=== PATIENT | male | born 1950 | race Caucasian/White ===

== ENCOUNTER 2019-10-23 19:04 | Inpatient (IN) ==
--- NOTE | 2019-10-23 19:25 | ERNOTE ---
Medical Problem HPI - Narrative Date of Service: 10/23/19 - General Chief Complaint: General Assessment Time Seen by Provider: 10/23/19 19:20 Source: patient, RN/MD, EMS Exam Limitations: clinical condition - Immun/Allergies/Home Medications Immunizations: IMMUNIZATION HX Immunizations Up to Date Yes History of Influenza Vaccine No Hx Pneumococcal Vaccination No Allergies/Adverse Reactions: Allergies morphine Allergy (Severe, Verified 10/23/19 19:16) Hives and severe nausea Iodinated Contrast Media [Iodinated Contrast- Oral and IV Dye] Allergy (Mild, Verified 10/23/19 19:16) Hives Home Medications: HOME MEDICATIONS Ezetimibe [Zetia] 10 mg PO HS 01/18/14 [Last Taken 09/19/16] metFORMIN HCL [Glucophage] 1,000 mg PO BIDWM 09/20/16 [Last Taken 09/20/16] metFORMIN HCL [Glucophage] 500 mg PO DAILY 09/20/16 [Last Taken 09/19/16] allopurinol 300 mg tablet 300 mg PO DAILY #30 tab 12/20/17 [Last Taken Unknown] glipizide 10 mg tablet 10 mg PO BID #60 tab 12/20/17 [Last Taken Unknown] sitagliptin 100 mg tablet 100 mg PO DAILY #30 tab 12/20/17 [Last Taken Unknown] gabapentin 600 mg tablet 600 mg PO TID 01/24/18 [Last Taken Unknown] meloxicam 7.5 mg tablet 7.5 mg PO BID tab 01/24/18 [Last Taken Unknown] Nystatin 30 gm TOPICAL BID #1 cream..g. 03/16/19 [Last Taken Unknown] atorvastatin 80 mg tablet 80 mg PO HS tab 10/22/19 [Last Taken Unknown] insulin degludec 100 unit/mL (3 mL) subcutaneous pen 30 unit SUBCUT HS ml 10/22/19 [Last Taken Unknown] levothyroxine 50 mcg tablet 50 mcg PO DAILY tab 10/22/19 [Last Taken Unknown] semaglutide 2.5 mg SUBCUT QWEEK ml 10/22/19 [Last Taken Unknown] - History of Present History Narrative: The patient is a 69-year-old male who presents via [facility] after report from family of fall and confusion. EMS reports that family states patient went into the bathroom after dinner sometime to use the restroom and was later found on the floor. Patient is a poor historian due to altered mental status but states he has anterior chest pain when questioned regarding pain and also has active coughing. The patient does not localize pain and is unable to describe or rate pain level when questioned. The past medical history includes: Diabetes, TUNDE and osteoarthritis. The social history is positive for current tobacco use. The patient has had no known exposure to ill contacts. Nursing staff was able to make contact via telephone with daughter who originally called EMS. Daughter states that her mother informed her this evening around 1700 that her father had fallen around 8 am. Patient then laid on the floor until the spouse made contact with the daughter at 1700 who then contacted EMS for transport. Unknown the event of fall or why patient laid on the floor for an extended duration. Daughter states that patient did develop cough yesterday and then began to become ill since onset. Review of Systems - Narrative Narrative: Difficult to obtain ROS due to patient being poor historian due to altered mental status and family only able to offer limited information. - Review of Systems Constitutional: Present: recent illness, weakness, malaise Respiratory: Present: cough Cardiology: Present: chest pain Neurological: Present: weakness Medical History (Last Reviewed 10/23/19 @ 19:30 by YAN Armstrong) Shoulder pain, right (Chronic) Morbid obesity (Chronic) BMI 50.0-59.9, adult (Acute) Shoulder impingement (Acute) Onset Date: 10/2011 right Nicotine dependence (Chronic) Onset Date: 03/2014 Low back pain (Chronic) Lumbar disc herniation (Acute) Diabetes mellitus, type II (Chronic) Onset Date: 10/2012 Degenerative arthritis of hip (Acute) Onset Date: 10/2006 right, Dr. Lopez Cough Onset Date: 02/2013 Osteoarthritis Prinzmetal angina Per Dr. Hernández transforaminal block Onset Date: 05/31/10 Luis Manuel Sanchez 06/28/2010 L2-3 Noe Hernandez 05/31/2010 L2-3 TUNDE (obstructive sleep apnea) Sleep disturbance due to TUNDE Surgical History: Surgical History (Last Reviewed 10/23/19 @ 19:30 by YAN Armstrong) H/O cardiac catheterization Onset Date: 2003 1999 [facility], 2003 [facility] History of arthroscopic surgery of shoulder Onset Date: 12/09/14 Dr. Montemayor,Right, w/debridement partial tear biceps tendon & labrum tear History of colonoscopy Onset Date: 01/2011 History of esophagogastroduodenoscopy (EGD) Onset Date: 01/2011 History of hip replacement, total Onset Date: 08/2006 Left 2017 [facility] Right 2008 [facility] History of knee replacement procedure of right knee Onset Date: 10/2006 S/P gastroplasty Onset Date: 02/1993 Dr. Idris Morales, [facility] vertical banded gastroplasty 11mm, 5mm Family History: Family History (Last Reviewed 10/23/19 @ 19:30 by YAN Armstrong) Brother Brain aneurysm Father No problems noted. Mother Hypertension Diabetes Sister Alive and well Sister Obesity x2 Social History: (Last Reviewed 10/23/19 @ 19:30 by YAN Armstrong) Social History: Marital status: household members: spouse, children current occupational status: disabled, unemployed Highest education level completed: GED or equivalent Service: Yes branch: [employer] Tobacco: Smoking Status: Current every day smoker tobacco type: cigarettes Smoking cigarettes per day: 40.0 Smoking packs per day: 2 Years smoked: 49 Smoking pack-years: 98.00 Alcohol: alcohol intake: current alcohol intake frequency: holiday/special occasion Substance Use: substance use type: does not use Dietary Habits: caffeine: Yes caffeine comment: daily Exercise: frequency: does not exercise Physical Exam - Physical Exam General Appearance: Present: wd/wn, alert, lethargic Head Exam: Present: normal inspection, no evidence of injury Eye Exam: Normal inspection: bilateral, PERRL: bilateral, EOMI: bilateral Ears, Nose, Throat: Present: dry mucous membranes Neck: Present: normal inspection, nontender, full range of motion Respiratory: Present: no respiratory distress, chest nontender, lungs clear, accessory muscle use - mild Cardiovascular/Chest: Present: regular rate, rhythm, no murmur Gastrointestinal/Abdominal: Present: normal bowel sounds, nontender, nondistended, soft, no organomegaly Extremity Exam: Present: normal range of motion - to all 4 extremities without guarding or localized pain., extremity edema - 1+ pitting to bilateral lower extremities. 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 Absent: motor weakness Skin Exam: Present: normal color, warm/dry, other - dried feces to lower legs and feet Progress - Date and Time Seen: Date and Time: 10/23/19 20:05 Patient returned from imaging and remains lethargic. Patient orientation has somewhat improved, patient is oriented to self, birthdate and location. Patient when questioned if he recalls falling states yes but then is unable to elaborate on what caused him to fall or how long he was on the ground. Patient remains unsure of what brought him to the ER this evening. 10/23/19 20:18 Due to elevated CK as well as dry mucous membranes and altered mental status will initiate IV hydration via fluid bolus. 10/23/19 21:[address] Atkins for admission, will insert and leave in [place] for strict I&O measurement for hydration status and kidney function. After joint discussion Dr. Atkins says to just finish current bolus and will reassess patient when he presents for admission. Reviewed results of imaging as well as lab with Dr. Atkins prior to admission. Agrees that slight elevation to WBC of 14 may be associated with stress of lying on the floor but remains awaiting results of UA testing for source of infection. 10/23/19 21:29 Patient will be swab for COVID through [facility] due to greater than 62 years of age with respiratory symptoms and chronic medical conditions and due to his admission. - Results and Orders Patient's Lab Results:: I have reviewed the patient's lab results. Results and Orders: Laboratory Tests 10/23/19 10/23/19 10/23/19 19:30 19:30 19:30 WBC 14.0 H Hgb 15.7 Hct 48.5 Plt Count 175 Neutrophils % 90.1 H Lymphocytes % 4.6 L INR (Anticoag Therapy) 1.08 PTT (Dixie) 30.3 Sodium 140 Potassium 4.4 Anion Gap 14.1 H BUN 17 Creatinine 1.28 Random Glucose 164 H Lactic Acid, Venous Calcium 9.1 Total Bilirubin 2.1 H Creatine Kinase 1914 H Troponin I 0.023 10/23/19 19:30 WBC Hgb Hct Plt Count Neutrophils % Lymphocytes % INR (Anticoag Therapy) PTT (Karen) Sodium Potassium Anion Gap BUN Creatinine Random Glucose Lactic Acid, Venous 2.2 H* Calcium Total Bilirubin Creatine Kinase Troponin I - Vital Signs Patient's Vital Signs:: I have reviewed the patient's vital signs. Vital Signs: Vital Signs 10/23/19 19:06 Temperature 37.7 C Pulse Rate 87 Respiratory Rate 23 H O2 Sat by Pulse Oximetry 99 Selected Entries 10/23/19 19:06 10/23/19 21:08 Blood Pressure 114/69 144/63 - EKG EKG #1 EKG: NSR, nonspecific ST T wave changes EKG read: Reviewed by me - X-Ray X-Ray #1 X-Ray: chest Interpretation: Reviewed by me X-ray Comments: No acute cardiopulmonary disease or infiltrate noted. Reviewed with . IMPRESSION: 1. NO ACUTE CARDIOPULMONARY PROCESS. Electronically signed by Wayne Harden M.D.. - CT/Ultrasound CT/Ultrasound Narrative: Real radiology preliminary report CT head without contrast: No acute disease in the brain. Paranasal sinus disease is noted. - Progress/Reassessment Chief Complaint: General Assessment Departure Clinical Impression: Dehydration Rhabdomyolysis Qualifiers: Rhabdomyolysis type: traumatic Encounter type: initial encounter Qualified Code(s): T79.6XXA - Traumatic ischemia of muscle, initial encounter Altered mental status Qualifiers: Altered mental status type: transient alteration of awareness Qualified Code(s): R40.4 - Transient alteration of awareness - Departure Disposition: Still a patient Condition: Stable
[2019-10-23 19:38] LABS: Hematocrit 48.5 % (42.0-52.0); Hemoglobin 15.7 gm/dL (13.5-18.0); Mean Corpuscular Hemoglobin 31.4 pg (27-31); Mean Corpuscular Hgb Conc 32.4 g/dl (32-36); Mean Platelet Volume 9.5 fl (8-11.3); Neutrophil # 12.7 K/mm3 (1.3-6.0); Neutrophil % 90.1 % (42-75.0); Platelet Count 175 K/mm3 (150-450); Red Cell Distribution Width 13.8 % (11.5-14.0)
[2019-10-23 19:59] LABS: Prothrombin Time (Patient) 10.7 Seconds (9.1-10.7)
[2019-10-23 20:00] LABS: INR 1.08 INR (0.92-1.08); Partial Thrombolplastin Time 30.3 Seconds (24-32)
[2019-10-23 20:04] LABS: Troponin I 0.023 ng/mL (0.00-0.10)
[2019-10-23 20:09] LABS: Albumin * 3.5 gm/dl (3.4-5.0); Anion Gap 14.1 mmol/L (6.8-13.8); BUN/Creatinine Ratio 13.3 (9.0-21.6); Bilirubin, Total 2.1 mg/dL (0.0-1.1); Ca. Corrected For Albumin 9.2 mg/dL (8.4-10.2); Calcium * 9.1 mg/dL (7.9-10.9); Carbon Dioxide 28.3 mmol/L (24-32.6); Potassium 4.4 mmol/L (3.4-4.6); Total Protein 6.8 gm/dL (6.2-8.2)
[2019-10-23] MEDS ORDERED: NORMAL SALINE 1,000 ML IV PRN (20:11)
[2019-10-23 21:45] LABS: Urine Bilirubin Negative (NEGATIVE); Urine Blood Negative /ul (NEGATIVE); Urine Ketone Negative (NEGATIVE); Urine Nitrite Negative (NEGATIVE); Urine Protein 15 mg/dL (NEGATIVE); Urine Specific Gravity 1.015 SP.GR. (1.005-1.030); Urine Urobilinogen Normal (NORMAL)
[2019-10-23] MEDS: NORMAL SALINE 1,000 ML IV PRN (21:45)
[2019-10-23 21:53] LABS: Urine Appearance Clear (CLEAR); Urine Bacteria None Seen; Urine Color Yellow; Urine RBC 0-5 /hpf (0-5); Urine WBC 0-5 /hpf (0-5)
[2019-10-24] MEDS: NORMAL SALINE 1,000 ML IV PRN ×3 (04:39→18:42)
[2019-10-24 12:39] LABS: Hemoglobin 14.2 gm/dL (13.5-18.0); Mean Cell Volume 96.4 fl (78-100); Mean Corpuscular Hemoglobin 31.8 pg (27-31); Neutrophil # 8.6 K/mm3 (1.3-6.0); Neutrophil % 82.4 % (42-75.0); Platelet Count 168 K/mm3 (150-450); Red Blood Count 4.46 M/mm3 (4.7-6.0); Red Cell Distribution Width 13.9 % (11.5-14.0); White Blood Count 10.5 K/mm3 (4.0-10.5)
[2019-10-24 13:03] LABS: Anion Gap 13.9 mmol/L (6.8-13.8); BUN/Creatinine Ratio 13.9 (9.0-21.6); Ca. Corrected For Albumin 8.8 mg/dL (8.4-10.2); Calcium * 8.3 mg/dL (7.9-10.9); Carbon Dioxide 24.1 mmol/L (24-32.6); Total Protein 6.6 gm/dL (6.2-8.2)
[2019-10-24] MEDS: glipiZIDE 10 MG TABLET PO SCH (16:45)
--- NOTE | 2019-10-24 19:29 | HP ---
Chief Complaint - Chief Complaint Date of Service: 10/24/19 Time of Service: 02:30 Chief Complaint: Weakness, found down History of Present Illness: Jose L reports falling this morning and being significantly weak. Weakness was general and he did not have focal weakness. He was unable to get off the ground and laid on the ground all day until EMS was called in the afternoon to help. He reports not feeling himself but denies chest pain or shortness of breath. He does not know why he fell other than diffuse weakness. No nausea or vomiting. Medical History (Last Reviewed 10/24/19 @ 00:14 by Alysha Das, RN) Shoulder pain, right (Chronic) Morbid obesity (Chronic) BMI 50.0-59.9, adult (Acute) Shoulder impingement (Acute) Onset Date: 10/2011 right Nicotine dependence (Chronic) Onset Date: 03/2014 Low back pain (Chronic) Lumbar disc herniation (Acute) Diabetes mellitus, type II (Chronic) Onset Date: 10/2012 Degenerative arthritis of hip (Acute) Onset Date: 10/2006 right, Dr. Lopez Cough Onset Date: 02/2013 Osteoarthritis Prinzmetal angina Per Dr. Hernández transforaminal block Onset Date: 05/31/10 Luis Manuel Sanchez 06/28/2010 L2-3 Noe Hernandez 05/31/2010 L2-3 TUNDE (obstructive sleep apnea) Sleep disturbance due to TUNDE Surgical History: Surgical History (Last Reviewed 10/24/19 @ 00:14 by Alysha Das, RN) H/O cardiac catheterization Onset Date: 2003 1999 [facility], 2004 [facility] History of arthroscopic surgery of shoulder Onset Date: 12/09/14 Dr. Montemayor,Right, w/debridement partial tear biceps tendon & labrum tear History of colonoscopy Onset Date: 01/2011 History of esophagogastroduodenoscopy (EGD) Onset Date: 01/2011 History of hip replacement, total Onset Date: 08/2006 Left 2017 [facility] Right 2007 [facility] History of knee replacement procedure of right knee Onset Date: 10/2006 S/P gastroplasty Onset Date: 02/1993 Dr. Idris Morales, [facility] vertical banded gastroplasty 11mm, 5mm Family History: Family History (Last Reviewed 10/24/19 @ 00:14 by Alysha Das, RN) Brother Brain aneurysm Father No problems noted. Mother Hypertension Diabetes Sister Alive and well Sister Obesity x2 Social History: (Last Reviewed 10/24/19 @ 00:14 by Alysha Das RN) Social History: Marital status: household members: spouse, children current occupational status: disabled, unemployed Highest education level completed: GED or equivalent Service: Yes branch: [employer] Tobacco: Smoking Status: Current every day smoker tobacco type: cigarettes Smoking cigarettes per day: 40.0 Smoking packs per day: 2 Years smoked: 49 Smoking pack-years: 98.00 Alcohol: alcohol intake: current alcohol intake frequency: holiday/special occasion Substance Use: substance use type: does not use Dietary Habits: caffeine: Yes caffeine comment: daily Exercise: frequency: does not exercise Review Of Systems (GEN) - Review of Systems Generalized/Overall Review: Present: Weakness. Absent: Chills, Fever EENTM: Present: No Symptoms Reported Respiratory: Present: Cough. Absent: Shortness of Breath Cardiac: Absent: Chest Pain, Edema Abdominal: Absent: Nausea, Vomiting Genitourinary: Absent: Burning, Urgency Musculoskeletal: Absent: Joint Pain, Back Pain Neurological: Absent: Headache, Anxiety Skin: Absent: Dryness, Lesions Endocrine: Absent: Intolerance to Cold, Intolerance to Heat Immunizations: IMMUNIZATION HX Immunizations Up to Date Yes History of Influenza Vaccine No Hx Pneumococcal Vaccination No Allergies/Adverse Reactions: Allergies Allergy/AdvReac Type Severity Reaction Status Date / Time morphine Allergy Severe Hives Verified 10/23/19 19:16 Iodinated Contrast Media Allergy Mild Hives Verified 10/23/19 19:16 [Iodinated Contrast- Oral and IV Dye] Home Medications: HOME MEDICATIONS Ezetimibe [Zetia] 10 mg PO HS 01/18/14 [Last Taken 09/19/16] metFORMIN HCL [Glucophage] 1,000 mg PO BID 09/20/16 [Last Taken 09/20/16] allopurinol 300 mg tablet 300 mg PO DAILY #30 tab 12/20/17 [Last Taken Unknown] glipizide 10 mg tablet 10 mg PO BID #60 tab 12/20/17 [Last Taken Unknown] gabapentin 600 mg tablet 600 mg PO TID 01/24/18 [Last Taken Unknown] meloxicam 7.5 mg tablet 7.5 mg PO BID tab 01/24/18 [Last Taken Unknown] atorvastatin 80 mg tablet 80 mg PO HS tab 10/22/19 [Last Taken Unknown] Hydrocodone-Acetamin 5-325 mg 1 tab PO Q6H PRN 10/24/19 [Last Taken Unknown] Insulin Degludec [Tresiba Flextouch U-100] 30 unit SQ HS 10/24/19 [Last Taken Unknown] Semaglutide [Ozempic] 0.25 mg SQ WE 10/24/19 [Last Taken Unknown] Exam - Exam Vital Signs: Vital Signs - Last Taken Temp 36.9 C 10/24/19 17:34 Pulse 89 10/24/19 17:34 Resp 20 10/24/19 17:34 BP 132/84 10/24/19 17:34 Pulse Ox 96 10/24/19 17:34 Constitutional: Present: Alert, Oriented x3, Cooperative ENT Exam: Present: hearing grossly normal Eye Exam: bilateral eye: normal inspection Respiratory: Present: lungs clear, normal breath sounds, no respiratory distress Cardiovascular/Chest: Present: regular rate, rhythm, no murmur Peripheral Pulses: radial (R): 2+, radial (L): 2+ Abdomen: Present: Normal bowel sounds, soft, nontender, nondistended Extremity: Present: normal inspection Skin Exam: Present: normal color, warm/dry, no cyanosis Lymphatic: Present: no adenopathy Neurologic: Present: motor weakness - 3/5 diffuse Appearance: Present: appropriate appearance, appropriate insight Eye contact: Present: cooperative, good eye contact, normal speech Diagnostic Studies: Abnormal Lab Results 10/23/19 10/23/19 10/23/19 Range/Units 19:30 19:30 19:30 WBC 14.0 H (4.0-10.5) K/mm3 RBC (4.7-6.0) M/mm3 MCH 31.4 H (27-31) pg Immature Gran % (Auto) 0.60 H (0.001-0.429) % Immature Gran # (Auto) 0.08 H (0.000-0.0310) K/mm3 Neutrophils % 90.1 H (42-75.0) % Lymphocytes % 4.6 L (20-51) % Neutrophils # 12.7 H (1.3-6.0) K/mm3 Lymphocytes # 0.64 L (1.5-3.5) k/mm3 pO2 (83.0-108.0) mmHg Total CO2 (19.0-24.0) mmol/L ABG O2 Sat (Measured) (94.0-98.0) % Anion Gap 14.1 H (6.8-13.8) mmol/L Random Glucose 164 H (70-110) mg/dL Lactic Acid, Venous 2.2 H* (0.4-2.0) mmol/L Total Bilirubin 2.1 H (0.0-1.1) mg/dL AST (0-48) U/L Creatine Kinase 1914 H (0-259) U/L Albumin (3.4-5.0) gm/dl Urine pH (5.0-7.0) pH Urine Protein (NEGATIVE) mg/dL 10/23/19 10/23/19 10/24/19 Range/Units 20:44 21:37 12:33 WBC (4.0-10.5) K/mm3 RBC 4.46 L (4.7-6.0) M/mm3 MCH 31.8 H (27-31) pg Immature Gran % (Auto) (0.001-0.429) % Immature Gran # (Auto) 0.04 H (0.000-0.0310) K/mm3 Neutrophils % 82.4 H (42-75.0) % Lymphocytes % 9.7 L (20-51) % Neutrophils # 8.6 H (1.3-6.0) K/mm3 Lymphocytes # 1.01 L (1.5-3.5) k/mm3 pO2 62.0 L (83.0-108.0) mmHg Total CO2 25.6 H (19.0-24.0) mmol/L ABG O2 Sat (Measured) 92.8 L (94.0-98.0) % Anion Gap (6.8-13.8) mmol/L Random Glucose (70-110) mg/dL Lactic Acid, Venous (0.4-2.0) mmol/L Total Bilirubin (0.0-1.1) mg/dL AST (0-48) U/L Creatine Kinase (0-259) U/L Albumin (3.4-5.0) gm/dl Urine pH 8.0 H (5.0-7.0) pH Urine Protein 15 H (NEGATIVE) mg/dL 10/24/19 Range/Units 12:33 WBC (4.0-10.5) K/mm3 RBC (4.7-6.0) M/mm3 MCH (27-31) pg Immature Gran % (Auto) (0.001-0.429) % Immature Gran # (Auto) (0.000-0.0310) K/mm3 Neutrophils % (42-75.0) % Lymphocytes % (20-51) % Neutrophils # (1.3-6.0) K/mm3 Lymphocytes # (1.5-3.5) k/mm3 pO2 (83.0-108.0) mmHg Total CO2 (19.0-24.0) mmol/L ABG O2 Sat (Measured) (94.0-98.0) % Anion Gap 13.9 H (6.8-13.8) mmol/L Random Glucose 152 H (70-110) mg/dL Lactic Acid, Venous (0.4-2.0) mmol/L Total Bilirubin 2.0 H (0.0-1.1) mg/dL AST 89 H (0-48) U/L Creatine Kinase 3510 H (0-259) U/L Albumin 3.0 L (3.4-5.0) gm/dl Urine pH (5.0-7.0) pH Urine Protein (NEGATIVE) mg/dL Laboratory Results WBC 10.5 K/mm3 (4.0-10.5) D 10/24/19 12:33 RBC 4.46 M/mm3 (4.7-6.0) L 10/24/19 12:33 Hgb 14.2 gm/dL (13.5-18.0) 10/24/19 12:33 Hct 43.0 % (42.0-52.0) 10/24/19 12:33 MCV 96.4 fl (78-100) 10/24/19 12:33 MCH 31.8 pg (27-31) H 10/24/19 12:33 MCHC 33.0 g/dl (32-36) 10/24/19 12:33 RDW 13.9 % (11.5-14.0) 10/24/19 12:33 Plt Count 168 K/mm3 (150-450) 10/24/19 12:33 MPV 9.0 fl (8-11.3) 10/24/19 12:33 Immature Gran % (Auto) 0.40 % (0.001-0.429) 10/24/19 12:33 Immature Gran # (Auto) 0.04 K/mm3 (0.000-0.0310) H 10/24/19 12:33 Neutrophils % 82.4 % (42-75.0) H 10/24/19 12:33 Lymphocytes % 9.7 % (20-51) L 10/24/19 12:33 Monocytes % 7.4 % (0.0-9) 10/24/19 12:33 Eosinophils % 0.0 % (0.0-3.0) 10/24/19 12:33 Basophils % 0.1 % (0.0-1.0) 10/24/19 12:33 Nucleated RBC % 0.0 k/mm3 (0-1) 10/24/19 12:33 Neutrophils # 8.6 K/mm3 (1.3-6.0) H 10/24/19 12:33 Lymphocytes # 1.01 k/mm3 (1.5-3.5) L 10/24/19 12:33 Monocytes # 0.8 k/mm3 (0.0-1.0) 10/24/19 12:33 Eosinophils # 0.0 k/mm3 (0.0-0.7) 10/24/19 12:33 Absolute Basophils 0.0 k/mm3 (0.0-0.1) 10/24/19 12:33 PT 10.7 Seconds (9.1-10.7) 10/23/19 19:30 INR (Anticoag Therapy) 1.08 INR (0.92-1.08) 10/23/19 19:30 PTT (Karen) 30.3 Seconds (24-32) 10/23/19 19:30 pCO2 36.6 mmHg (35.0-48.0) 10/23/19 20:44 pO2 62.0 mmHg (83.0-108.0) L 10/23/19 20:44 HCO3 24.5 mmol/L (21.0-28.0) 10/23/19 20:44 Total CO2 25.6 mmol/L (19.0-24.0) H 10/23/19 20:44 Base Excess 0.7 mmol/L (-2.0-3.0) 10/23/19 20:44 ABG pH 7.44 (7.35-7.45) 10/23/19 20:44 ABG O2 Sat (Measured) 92.8 % (94.0-98.0) L 10/23/19 20:44 Sodium 137 mmol/L (132-142) 10/24/19 12:33 Plasma Sodium 138 mmol/L (130-142) 10/24/19 12:33 Potassium 4.0 mmol/L (3.4-4.6) 10/24/19 12:33 Chloride 103 mmol/L (97-106) 10/24/19 12:33 Carbon Dioxide 24.1 mmol/L (24-32.6) 10/24/19 12:33 Anion Gap 13.9 mmol/L (6.8-13.8) H 10/24/19 12:33 BUN 14 mg/dL (6-23) 10/24/19 12:33 Creatinine 1.01 mg/dL (0.4-1.4) 10/24/19 12:33 Est GFR (Non-Af Amer) 78 mL/min (60-130) D 10/24/19 12:33 BUN/Creatinine Ratio 13.9 (9.0-21.6) 10/24/19 12:33 Random Glucose 152 mg/dL (70-110) H 10/24/19 12:33 Lactic Acid, Venous 1.8 mmol/L (0.4-2.0) 10/23/19 22:33 Calcium 8.3 mg/dL (7.9-10.9) 10/24/19 12:33 Calcium Adj for Albumin 8.8 mg/dL (8.4-10.2) 10/24/19 12:33 Total Bilirubin 2.0 mg/dL (0.0-1.1) H 10/24/19 12:33 AST 89 U/L (0-48) H 10/24/19 12:33 ALT 32 U/L (19-67) 10/24/19 12:33 Alkaline Phosphatase 65 U/L (50-170) 10/24/19 12:33 Creatine Kinase 3510 U/L (0-259) H 10/24/19 12:33 Troponin I 0.023 ng/mL (0.00-0.10) 10/23/19 19:30 Total Protein 6.6 gm/dL (6.2-8.2) 10/24/19 12:33 Albumin 3.0 gm/dl (3.4-5.0) L 10/24/19 12:33 Urine Color Yellow 10/23/19 21:37 Urine Appearance Clear (CLEAR) 10/23/19 21:37 Urine pH 8.0 pH (5.0-7.0) H 10/23/19 21:37 Ur Specific [place] 1.015 SP.GR. (1.005-1.030) 10/23/19 21:37 Urine Protein 15 mg/dL (NEGATIVE) H 10/23/19 21:37 Urine Glucose (UA) Negative mg/dL (NEGATIVE) 10/23/19 21:37 Urine Ketones Negative mg/dL (NEGATIVE) 10/23/19 21:37 Urine Blood Negative /ul (NEGATIVE) 10/23/19 21:37 Urine Nitrate Negative (NEGATIVE) 10/23/19 21:37 Urine Bilirubin Negative mg/dl (NEGATIVE) 10/23/19 21:37 Prot Sulfosalicylic Acd Negative mg/dL (0) 10/23/19 21:37 Urine Urobilinogen Normal EU/dl (NORMAL) 10/23/19 21:37 Ur Leukocyte Esterase Negative /ul (NEGATIVE) 10/23/19 21:37 Urine RBC 0-5 /hpf (0-5) 10/23/19 21:37 Urine WBC 0-5 /hpf (0-5) 10/23/19 21:37 Ur Epithelial Cells 0-5 /hpf (0-5) 10/23/19 21:37 Urine Bacteria None seen (NONE) 10/23/19 21:37 Urine Culture Comments Culture to follow 10/23/19 21:37 Assessment/Plan - Narrative Narrative: Jose L has rhabdomyolysis with elevated CK. No renal failure at this time but he will need IV fluids nad monitoring of CK and renal function. Will admit to inaptient status. Plan for 2-3 midnight stay to make sure no renal failure deve lops. Unclear etiology for generalized weakness. No evidence of stroke. May consider MRI of brain if not improving. - Assessment/Plan (1) Rhabdomyolysis Problem: Acute Qualifiers: Rhabdomyolysis type: traumatic Encounter type: initial encounter Qualified Code(s): T79.6XXA - Traumatic ischemia of muscle, initial encounter (2) Dehydration Problem: Acute (3) Altered mental status Problem: Acute Qualifiers: Altered mental status type: transient alteration of awareness Qualified Code(s): R40.4 - Transient alteration of awareness (4) Morbid obesity Problem: Chronic (5) BMI 50.0-59.9, adult Problem: Acute
[2019-10-24] MEDS: EZETIMIBE 10 MG TABLET PO SCH (21:50)
[2019-10-24] MEDS: ROSUVASTATIN CALCIUM 20 MG TABLET PO SCH (21:50)
[2019-10-25] MEDS: NORMAL SALINE 1,000 ML IV PRN ×2 (02:34→09:53)
[2019-10-25] MEDS: glipiZIDE 10 MG TABLET PO SCH ×2 (06:41→17:01)
[2019-10-25] MEDS: ALLOPURINOL 300 MG TABLET PO SCH (08:35)
[2019-10-25 13:29] LABS: Hematocrit 44.1 % (42.0-52.0); Hemoglobin 14.2 gm/dL (13.5-18.0); Mean Corpuscular Hemoglobin 31.6 pg (27-31); Mean Corpuscular Hgb Conc 32.2 g/dl (32-36); Mean Platelet Volume 9.7 fl (8-11.3); Neutrophil # 5.5 K/mm3 (1.3-6.0); Neutrophil % 69.6 % (42-75.0); Platelet Count 168 K/mm3 (150-450); White Blood Count 7.9 K/mm3 (4.0-10.5)
[2019-10-25 14:03] LABS: Albumin * 2.9 gm/dl (3.4-5.0); Anion Gap 11.1 mmol/L (6.8-13.8); BUN/Creatinine Ratio 13.9 (9.0-21.6); Bilirubin, Total 1.3 mg/dL (0.0-1.1); Ca. Corrected For Albumin 9.7 mg/dL (8.4-10.2); Calcium * 9.1 mg/dL (7.9-10.9); Carbon Dioxide 28.4 mmol/L (24-32.6); Potassium 4.5 mmol/L (3.4-4.6); Total Protein 6.8 gm/dL (6.2-8.2)
[2019-10-25] MEDS: ROSUVASTATIN CALCIUM 20 MG TABLET PO SCH (20:45)
[2019-10-25] MEDS: EZETIMIBE 10 MG TABLET PO SCH (20:45)
--- NOTE | 2019-10-25 22:45 | PN ---
Subjective - Date and Time Seen Date: 10/25/19 Time: 12:30 Subjective Narrative: Anand reports feeling stronger. No fever, chills, nausea, or vomiting. He reports urinating a lot with all the fluids he has been given. CK is trending down. Objective - Vitals Vitals: Last Vital Signs Temp 36.6 C 10/25/19 19:05 Pulse 62 10/25/19 19:05 Resp 17 10/25/19 19:05 BP 120/60 10/25/19 19:05 Pulse Ox 94 10/25/19 19:05 - Abnormal Lab Findings Abnormal Lab Findings: Abnormal Lab Results 10/25/19 10/25/19 Range/Units 12:59 12:59 RBC 4.50 L (4.7-6.0) M/mm3 MCH 31.6 H (27-31) pg Lymphocytes % 18.4 L (20-51) % Monocytes % 10.4 H (0.0-9) % Lymphocytes # 1.46 L (1.5-3.5) k/mm3 Random Glucose 217 H D (70-110) mg/dL Total Bilirubin 1.3 H (0.0-1.1) mg/dL AST 75 H (0-48) U/L Creatine Kinase 1572 H (0-259) U/L Albumin 2.9 L (3.4-5.0) gm/dl - Exam Constitutional: Present: Alert, Oriented x3, Cooperative ENT Exam: Present: hearing grossly normal Respiratory: Present: normal breath sounds, no respiratory distress Cardiovascular/Chest: Present: no edema Abdomen: Present: Normal bowel sounds, soft, nontender, nondistended Extremity: Present: normal inspection Skin Exam: Present: normal color, warm/dry, no cyanosis Appearance: Present: appropriate appearance, appropriate insight Cauti Physician Documentation - Urinary Catheter Management Urethral ([place]) Date of Insertion: 10/23/19 Time of Insertion: 21:41 Date of Removal: 10/24/19 Time of Removal: 21:35 Assessment/Plan Plan Narrative: CK trending down. Will stop IV fluids and repeat CK tomorrow if still trending down will plan to discharge to home. No sign of renal failure. - Problems/Diagnosis (1) Rhabdomyolysis Problem: Acute Qualifiers: Rhabdomyolysis type: non-traumatic Qualified Code(s): M62.82 - Rhabdomyolysis (2) Dehydration Problem: Acute (3) Altered mental status Problem: Acute Qualifiers: Altered mental status type: transient alteration of awareness Qualified Code(s): R40.4 - Transient alteration of awareness (4) Morbid obesity Problem: Chronic (5) BMI 50.0-59.9, adult Problem: Acute
[2019-10-26 06:36] LABS: Hematocrit 45.3 % (42.0-52.0); Hemoglobin 14.6 gm/dL (13.5-18.0); Mean Cell Volume 97.8 fl (78-100); Mean Corpuscular Hemoglobin 31.5 pg (27-31); Mean Corpuscular Hgb Conc 32.2 g/dl (32-36); Mean Platelet Volume 9.7 fl (8-11.3); Neutrophil # 5.7 K/mm3 (1.3-6.0); Platelet Count 183 K/mm3 (150-450); Red Blood Count 4.63 M/mm3 (4.7-6.0); Red Cell Distribution Width 13.9 % (11.5-14.0); White Blood Count 7.6 K/mm3 (4.0-10.5)
[2019-10-26] MEDS: glipiZIDE 10 MG TABLET PO SCH (06:49)
[2019-10-26 06:56] LABS: Anion Gap 11.6 mmol/L (6.8-13.8); BUN/Creatinine Ratio 12.7 (9.0-21.6); Ca. Corrected For Albumin 9.3 mg/dL (8.4-10.2); Calcium * 8.8 mg/dL (7.9-10.9); Carbon Dioxide 28.4 mmol/L (24-32.6); Total Protein 6.8 gm/dL (6.2-8.2)
--- NOTE | 2019-10-26 08:08 | DS ---
(1) Rhabdomyolysis Problem: Acute Qualifiers: Rhabdomyolysis type: non-traumatic Qualified Code(s): M62.82 - Rhabdomyolysis (2) Dehydration Problem: Acute (3) Altered mental status Problem: Acute Qualifiers: Altered mental status type: transient alteration of awareness Qualified Code(s): R40.4 - Transient alteration of awareness (4) Morbid obesity Problem: Chronic (5) BMI 50.0-59.9, adult Problem: Acute Date of Discharge:: 10/26/19 Hospital Course: Jose L was admitted for rhabdomyolysis after being down at home. He reports he got weak and fell at home and was unable to get up for hours. He was admitted with elevated CK but no renal impairment. He was treated with IV fluids and strength improved. CK trended down and there was no renal impairment. He will be discharged to home today as his strength has returned to his baseline and he is doing well. He was tested for COVID because of his presentation with cough, but he later reported that his cough is a chronic smoker's cough. COVID was negative. Procedures Performed: none Results and Findings: Pending Mircobiology Results 10/23/19 20:00 Blood Blood Culture - Preliminary NO GROWTH AFTER 48 HOURS 10/23/19 19:30 Blood Blood Culture - Preliminary NO GROWTH AFTER 48 HOURS Lab Pending Results 10/23/19 19:30: WBC 14.0 H, RBC 5.00, Hgb 15.7, Hct 48.5, MCV 97.0, MCH 31.4 H, MCHC 32.4, RDW 13.8, Plt Count 175, MPV 9.5, Immature Gran % (Auto) 0.60 H, Immature Gran # (Auto) 0.08 H, Neutrophils % 90.1 H, Lymphocytes % 4.6 L, Monocytes % 4.5, Eosinophils % 0.0, Basophils % 0.2, Nucleated RBC % 0.0, Neutrophils # 12.7 H, Lymphocytes # 0.64 L, Monocytes # 0.6, Eosinophils # 0.0, Absolute Basophils 0.0 10/23/19 19:30: Sodium 140, Plasma Sodium 141, Potassium 4.4, Chloride 102, Carbon Dioxide 28.3, Anion Gap 14.1 H, BUN 17, Creatinine 1.28, Est GFR (Non-Af Amer) 60, BUN/Creatinine Ratio 13.3, Random Glucose 164 H, Calcium 9.1, Calcium Adj for Albumin 9.2, Total Bilirubin 2.1 H, AST 43, ALT 23, Alkaline Phosphatase 78, Creatine Kinase 1914 H, Troponin I 0.023, Total Protein 6.8, Albumin 3.5 10/23/19 19:30: PT 10.7, INR (Anticoag Therapy) 1.08, PTT ([place]) 30.3 10/23/19 19:30: Lactic Acid, Venous 2.2 H* 10/23/19 20:44: pCO2 36.6, pO2 62.0 L, HCO3 24.5, Total CO2 25.6 H, Base Excess 0.7, ABG pH 7.44, ABG O2 Sat (Measured) 92.8 L 10/23/19 21:37: SARS-CoV-2 (PCR) Not detected 10/23/19 21:37: Urine Color Yellow, Urine Appearance Clear, Urine pH 8.0 H, Ur Specific [place] 1.015, Urine Protein 15 H, Urine Glucose (UA) Negative, Urine Ketones Negative, Urine Blood Negative, Urine Nitrate Negative, Urine Bilirubin Negative, Prot Sulfosalicylic Acd Negative, Urine Urobilinogen Normal, Ur Leukocyte Esterase Negative, Urine RBC 0-5, Urine WBC 0-5, Ur Epithelial Cells 0-5, Urine Bacteria None seen, Urine Culture Comments Culture to follow 10/23/19 22:33: Lactic Acid, Venous 1.8 10/24/19 12:33: WBC 10.5 D, RBC 4.46 L, Hgb 14.2, Hct 43.0, MCV 96.4, MCH 31.8 H, MCHC 33.0, RDW 13.9, Plt Count 168, MPV 9.0, Immature Gran % (Auto) 0.40, Immature Gran # (Auto) 0.04 H, Neutrophils % 82.4 H, Lymphocytes % 9.7 L, Monocytes % 7.4, Eosinophils % 0.0, Basophils % 0.1, Nucleated RBC % 0.0, Neutrophils # 8.6 H, Lymphocytes # 1.01 L, Monocytes # 0.8, Eosinophils # 0.0, Absolute Basophils 0.0 10/24/19 12:33: Sodium 137, Plasma Sodium 138, Potassium 4.0, Chloride 103, Carbon Dioxide 24.1, Anion Gap 13.9 H, BUN 14, Creatinine 1.01, Est GFR (Non-Af Amer) 78 D, BUN/Creatinine Ratio 13.9, Random Glucose 152 H, Calcium 8.3, Calcium Adj for Albumin 8.8, Total Bilirubin 2.0 H, AST 89 H, ALT 32, Alkaline Phosphatase 65, Creatine Kinase 3510 H, Total Protein 6.6, Albumin 3.0 L 10/25/19 12:59: WBC 7.9 D, RBC 4.50 L, Hgb 14.2, Hct 44.1, MCV 98.0, MCH 31.6 H, MCHC 32.2, RDW 14.0, Plt Count 168, MPV 9.7, Immature Gran % (Auto) 0.30, Immature Gran # (Auto) 0.02, Neutrophils % 69.6, Lymphocytes % 18.4 L, Monocytes % 10.4 H, Eosinophils % 1.0, Basophils % 0.3, Nucleated RBC % 0.0, Neutrophils # 5.5, Lymphocytes # 1.46 L, Monocytes # 0.8, Eosinophils # 0.1, Absolute Basophils 0.0 10/25/19 12:59: Sodium 139, Plasma Sodium 141, Potassium 4.5, Chloride 104, Carbon Dioxide 28.4, Anion Gap 11.1, BUN 14, Creatinine 1.01, Est GFR (Non-Af Amer) 78, BUN/Creatinine Ratio 13.9, Random Glucose 217 H D, Calcium 9.1, Calcium Adj for Albumin 9.7, Total Bilirubin 1.3 H, AST 75 H, ALT 24, Alkaline Phosphatase 70, Creatine Kinase 1572 H, Total Protein 6.8, Albumin 2.9 L 10/26/19 06:30: WBC 7.6, RBC 4.63 L, Hgb 14.6, Hct 45.3, MCV 97.8, MCH 31.5 H, MCHC 32.2, RDW 13.9, Plt Count 183, MPV 9.7, Immature Gran % (Auto) 0.40, Immature Gran # (Auto) 0.03, Neutrophils % 74.0, Lymphocytes % 15.6 L, Monocytes % 8.7, Eosinophils % 1.2, Basophils % 0.1, Nucleated RBC % 0.0, Neutrophils # 5.7, Lymphocytes # 1.19 L, Monocytes # 0.7, Eosinophils # 0.1, Absolute Basophils 0.0 10/26/19 06:30: Sodium 138, Plasma Sodium 141, Potassium 4.0, Chloride 102, Carbon Dioxide 28.4, Anion Gap 11.6, BUN 13, Creatinine 1.02, Est GFR (Non-Af Amer) 77, BUN/Creatinine Ratio 12.7, Random Glucose 258 H, Calcium 8.8, Calcium Adj for Albumin 9.3, Total Bilirubin 1.0, AST 57 H, ALT 32, Alkaline Phosphatase 81, Creatine Kinase 736 H, Total Protein 6.8, Albumin 3.0 L Discharge Location: Home Disposition: Home self-care Condition: Good Discharge Activity: Activity as tolerated Discharge Diet: Consistent carbs Referrals: Emely Jensen ARNP [Primary Care Provider] - One Week Problem Oriented Discharge Instructions to Patient/Family: Rhabdomyolysis Complete Home Medications List: Complete Home Medication List: Ezetimibe [Zetia] 10 mg PO HS 01/18/14 metFORMIN HCL [Glucophage] 1,000 mg PO BID 09/20/16 allopurinol 300 mg tablet 300 mg PO DAILY #30 tab 12/20/17 glipizide 10 mg tablet 10 mg PO BID #60 tab 12/20/17 gabapentin 600 mg tablet 600 mg PO TID 01/24/18 meloxicam 7.5 mg tablet 7.5 mg PO BID tab 01/24/18 atorvastatin 80 mg tablet 80 mg PO HS tab 10/22/19 Hydrocodone-Acetamin 5-325 mg 1 tab PO Q6H PRN 10/24/19 Insulin Degludec [Tresiba Flextouch U-100] 30 unit SQ HS 10/24/19 Semaglutide [Ozempic] 0.25 mg SQ WE 10/24/19 Forms: Patient Portal Registration
[2019-10-26] MEDS: ALLOPURINOL 300 MG TABLET PO SCH (09:10)
[2019-10-26 09:57] VITALS: BP 128/59
== END 2019-10-26 10:00 | disposition home or self-care (01) | DRG 565 ==
LOC: ER 19:04 → MS 21:26
PROVIDERS: ADMIT Family Medicine; ATTEND Family Medicine
CPT/HCPCS: 36415; 36600; 70450; 71010; 71045; 80053; 81001; 82550; 82803; 83605; 84484; 85025; 85610; 85730; 87040; 87086; 93005; 96360; 99285; U0001

== ENCOUNTER 2020-07-12 06:20 | Observation (INO) ==
[2020-07-12 06:50] LABS: Hematocrit 48.9 % (42.0-52.0); Hemoglobin 15.6 gm/dL (13.5-18.0); Mean Cell Volume 95.5 fl (78-100); Mean Corpuscular Hemoglobin 30.5 pg (27-31); Mean Corpuscular Hgb Conc 31.9 g/dl (32-36); Mean Platelet Volume 9.5 fl (8-11.3); Neutrophil # 12.3 K/mm3 (1.3-6.0); Neutrophil % 87.5 % (42-75.0); Platelet Count 204 K/mm3 (150-450); Red Blood Count 5.12 M/mm3 (4.7-6.0); Red Cell Distribution Width 13.5 % (11.5-14.0); White Blood Count 14.1 K/mm3 (4.0-10.5)
[2020-07-12] MEDS ORDERED: cefTRIAXone SODIUM 1,000 MG/100 ML BAG IV ONE (06:53)
[2020-07-12] MEDS: NORMAL SALINE 1,000 ML IV SCH ×4 (07:16→13:43)
[2020-07-12 07:20] LABS: Albumin * 3.7 gm/dl (3.4-5.0); Anion Gap 14.6 mmol/L (6.8-13.8); BUN/Creatinine Ratio 13.5 (9.0-21.6); Bilirubin, Total 1.4 mg/dL (0.0-1.1); Ca. Corrected For Albumin 9.2 mg/dL (8.4-10.2); Calcium * 9.3 mg/dL (7.9-10.9); Carbon Dioxide 24.4 mmol/L (24-32.6); Total Protein 7.8 gm/dL (6.2-8.2)
--- NOTE | 2020-07-12 07:40 | ERNOTE ---
<Bing Hayes - Last Filed: 07/12/20 07:58> Medical Problem HPI - Narrative Date of Service: 07/12/20 - General Chief Complaint: General Assessment Time Seen by Provider: 07/12/20 06:43 Source: patient Exam Limitations: no limitations - Immun/Allergies/Home Medications Immunizations: IMMUNIZATION HX Immunizations Up to Date Yes History of Influenza Vaccine No Hx Pneumococcal Vaccination No Allergies/Adverse Reactions: Allergies morphine Allergy (Severe, Verified 05/26/20 13:40) Hives and severe nausea Iodinated Contrast Media [Iodinated Contrast- Oral and IV Dye] Allergy (Mild, Verified 05/26/20 13:40) Hives Home Medications: HOME MEDICATIONS Ezetimibe [Zetia] 10 mg PO HS 01/18/14 [Last Taken 09/19/16] metFORMIN HCL [Glucophage] 1,000 mg PO BID 09/20/16 [Last Taken 09/20/16] allopurinol 300 mg tablet 300 mg PO DAILY #30 tab 12/20/17 [Last Taken Unknown] glipizide 10 mg tablet 10 mg PO BID #60 tab 12/20/17 [Last Taken Unknown] atorvastatin 80 mg tablet 80 mg PO HS tab 10/22/19 [Last Taken Unknown] Insulin Degludec [Tresiba Flextouch U-100] 30 unit SQ HS 10/24/19 [Last Taken Unknown] Semaglutide [Ozempic] 0.25 mg SQ WE 10/24/19 [Last Taken Unknown] furosemide 40 mg tablet 40 mg PO DAILY #30 tab 05/26/20 [Last Taken Unknown] Celecoxib [Celebrex] 100 mg PO BID PRN 07/12/20 [Last Taken Unknown] Levothyroxine Sodium [Synthroid] 50 mcg PO DAILY 07/12/20 [Last Taken Unknown] Montelukast Sodium [Singulair] 10 mg PO HS 07/12/20 [Last Taken Unknown] metFORMIN HCL [Metformin HCl] 500 mg PO DAILY 07/12/20 [Last Taken Unknown] - History of Present History Narrative: Patient comes in today for shortness of breath and cough. He states he started not feeling well just a few hours ago. He has history of COPD, diabetes, hypertension, hyperlipidemia. He has never had a heart attack, no stents placed. He has not been around anyone ill lately. He is not typically on oxygen, is currently requiring 2 L of oxygen. He states his mouth feels dry, he thinks he is dehydrated. No swelling in the ankles or feet that is any worse than usual. Denies chest pain. Review of Systems - Review of Systems Constitutional: Present: fever, fatigue, malaise. Absent: weakness EYE: Present: no symptoms reported Respiratory: Present: shortness of breath, cough. Absent: wheezing Cardiology: Absent: chest pain, edema Gastrointestinal/Abdominal: Absent: nausea, vomiting, diarrhea, constipation Neurological: Absent: anxiety, weakness, numbness Medical History (Last Reviewed 07/12/20 @ 07:33 by Bing Hayes MD) Shoulder pain, right (Chronic) Morbid obesity (Chronic) BMI 50.0-59.9, adult (Acute) Shoulder impingement (Acute) Onset Date: 10/2011 right Nicotine dependence (Chronic) Onset Date: 03/2014 Low back pain (Chronic) Lumbar disc herniation (Acute) Diabetes mellitus, type II (Chronic) Onset Date: 10/2012 Degenerative arthritis of hip (Acute) Onset Date: 10/2006 right, Dr. Lopez Cough Onset Date: 02/2013 Osteoarthritis Prinzmetal angina Per Dr. Hernández transforaminal block Onset Date: 05/31/10 Luis Manuel Sanchez 06/28/2010 L2-3 Noe Hernandez 05/31/2010 L2-3 TUNDE (obstructive sleep apnea) Sleep disturbance due to TUNDE Surgical History: Surgical History (Last Reviewed 07/12/20 @ 07:33 by Bing Hayes MD) H/O cardiac catheterization Onset Date: 2003 1999 [facility], 2003 [facility] History of arthroscopic surgery of shoulder Onset Date: 12/09/14 Dr. Montemayor,Right, w/debridement partial tear biceps tendon & labrum tear History of colonoscopy Onset Date: 01/2011 History of esophagogastroduodenoscopy (EGD) Onset Date: 01/2011 History of hip replacement, total Onset Date: 08/2006 Left 2017 [facility] Right 2007 [facility] History of knee replacement procedure of right knee Onset Date: 10/2006 S/P gastroplasty Onset Date: 02/1993 Dr. Idris Morales, [facility] vertical banded gastroplasty 11mm, 5mm Family History: Family History (Last Reviewed 07/12/20 @ 07:34 by Bing Hayes MD) Brother Brain aneurysm Father No problems noted. Mother Hypertension Diabetes Sister Alive and well Sister Obesity x2 Social History: (Last Reviewed 07/12/20 @ 07:34 by Bing Hayes MD) Social History: Marital status: household members: spouse current occupational status: disabled Highest level of school completed/degree received: GED or equivalent Service: Yes branch: [employer] Tobacco: Smoking Status: Current every day smoker tobacco type: cigarettes Smoking cigarettes per day: 40.0 Smoking packs per day: 2 Years smoked: 49 Smoking pack-years: 98.00 Alcohol: alcohol intake: current alcohol intake frequency: holiday/special occasion Substance Use: substance use type: does not use Dietary Habits: caffeine: Yes caffeine comment: daily Exercise: frequency: does not exercise Physical Exam - Physical Exam General Appearance: Present: wd/wn, alert, no apparent distress Head Exam: Present: normal inspection Eye Exam: Normal inspection: bilateral, PERRL: bilateral Neck: Present: normal inspection, nontender, supple Respiratory: Present: rhonchi, wheezing - mild, received nebulizer in ambulance Cardiovascular/Chest: Present: tachycardia Gastrointestinal/Abdominal: Present: normal bowel sounds, nontender, soft Extremity Exam: Present: extremity edema - 1+ bilateral, pt states this is normal for him Neurological Exam: Present: alert, oriented Skin Exam: Present: normal color, warm/dry Progress - Results and Orders Patient's Lab Results:: I have reviewed the patient's lab results. Results and Orders: Laboratory Tests 07/12/20 07/12/20 07/12/20 06:40 06:40 06:47 WBC 14.1 H Hgb 15.6 Hct 48.9 Plt Count 204 Plasma Sodium Potassium Chloride Carbon Dioxide Anion Gap BUN Creatinine Random Glucose Lactic Acid, Venous 2.0 Calcium Adj for Albumin Total Bilirubin AST ALT Alkaline Phosphatase Troponin I 0.035 B-Natriuretic Peptide Total Protein Albumin 07/12/20 06:47 WBC Hgb Hct Plt Count Plasma Sodium 136 Potassium 5.0 H D Chloride 99 Carbon Dioxide 24.4 Anion Gap 14.6 H BUN 26 H D Creatinine 1.92 H D Random Glucose 304 H Lactic Acid, Venous Calcium Adj for Albumin 9.2 Total Bilirubin 1.4 H AST 27 ALT 34 Alkaline Phosphatase 120 Troponin I B-Natriuretic Peptide 133 Total Protein 7.8 Albumin 3.7 - Vital Signs Patient's Vital Signs:: I have reviewed the patient's vital signs. Vital Signs: Vital Signs 07/12/20 06:24 Temperature 38.0 C Pulse Rate 121 H Respiratory Rate 22 H Blood Pressure 121/70 O2 Sat by Pulse Oximetry 92 L - EKG EKG #1 EKG read: Interp. by me EKG Comments: Sinus tachycardia, rate is 122, no acute changes otherwise. - X-Ray X-Ray #1 X-Ray: chest Interpretation: Interp. by me X-ray Comments: RLL consolidation - Progress/Reassessment Chief Complaint: General Assessment Progress:: Unchanged Progress Note-Subjective: 07/12/20 07:47 Patient is doing well, he is received approximately 1 L of fluids, has not yet been able to urinate. He is just now being given Tylenol. Remains on 2 L of oxygen, chest x-ray appears to have right lower lobe pneumonia. He has received 1 g of Rocephin. Blood pressure is currently 113/62, heart rate is 116. Case is discussed with oncoming physician, awaiting remainder of work-up, expecting placement here for pneumonia, question UTI. His lactic acid is normal. His care is transferred at 0800 to oncoming physician. - Transfer of Care Physician Sign Out: Bing Hayes Receiving Physician: Esme Yousif Pending Results: Labs Expected Disposition: Admit Departure Clinical Impression: Sepsis Pneumonia Qualifiers: Pneumonia type: due to unspecified organism Laterality: right Lung location: lower lobe of lung Qualified Code(s): J18.9 - Pneumonia, unspecified organism - Departure Disposition: Still a patient Condition: Stable Referrals: Emely Jensen ARNP [Primary Care Provider] - <Esme Yousif - Last Filed: 07/12/20 11:06> Medical Problem HPI - Immun/Allergies/Home Medications Immunizations: IMMUNIZATION HX Immunizations Up to Date Yes History of Influenza Vaccine No Hx Pneumococcal Vaccination No Medical History (Last Reviewed 07/12/20 @ 07:33 by Bing Hayes MD) Shoulder pain, right (Chronic) Morbid obesity (Chronic) BMI 50.0-59.9, adult (Acute) Shoulder impingement (Acute) Onset Date: 10/2011 right Nicotine dependence (Chronic) Onset Date: 03/2014 Low back pain (Chronic) Lumbar disc herniation (Acute) Diabetes mellitus, type II (Chronic) Onset Date: 10/2012 Degenerative arthritis of hip (Acute) Onset Date: 10/2006 right, Dr. Lopez Cough Onset Date: 02/2013 Osteoarthritis Prinzmetal angina Per Dr. Hernández transforaminal block Onset Date: 05/31/10 Luis Manuel Hahira 06/28/2010 L2-3 Noe Hernandez 05/31/2010 L2-3 TUNDE (obstructive sleep apnea) Sleep disturbance due to TUNDE Surgical History: Surgical History (Last Reviewed 07/12/20 @ 07:33 by Bing Hayes MD) H/O cardiac catheterization Onset Date: 2003 1999 [facility], 2003 [facility] History of arthroscopic surgery of shoulder Onset Date: 12/09/14 Dr. Montemayor,Right, w/debridement partial tear biceps tendon & labrum tear History of colonoscopy Onset Date: 01/2011 History of esophagogastroduodenoscopy (EGD) Onset Date: 01/2011 History of hip replacement, total Onset Date: 08/2006 Left 2017 [facility] Right 2007 [facility] History of knee replacement procedure of right knee Onset Date: 10/2006 S/P gastroplasty Onset Date: 02/1993 Dr. Idris Morales, [facility] vertical banded gastroplasty 11mm, 5mm Family History: Family History (Last Reviewed 07/12/20 @ 07:34 by Bing Hayes MD) Brother Brain aneurysm Father No problems noted. Mother Hypertension Diabetes Sister Alive and well Sister Obesity x2 Social History: (Last Reviewed 07/12/20 @ 07:34 by Bing Hayes MD) Social History: Marital status: household members: spouse current occupational status: disabled Highest level of school completed/degree received: GED or equivalent Service: Yes branch: [employer] Tobacco: Smoking Status: Current every day smoker tobacco type: cigarettes Smoking cigarettes per day: 40.0 Smoking packs per day: 2 Years smoked: 49 Smoking pack-years: 98.00 Alcohol: alcohol intake: current alcohol intake frequency: holiday/special occasion Substance Use: substance use type: does not use Dietary Habits: caffeine: Yes caffeine comment: daily Exercise: frequency: does not exercise Physical Exam - Physical Exam General Appearance: Present: wd/wn, alert, no apparent distress, obese Respiratory: Present: no respiratory distress Neurological Exam: Present: alert, oriented Skin Exam: Present: normal color, warm/dry Progress - Results and Orders Patient's Lab Results:: I have reviewed the patient's lab results. - Vital Signs Patient's Vital Signs:: I have reviewed the patient's vital signs. Vital Signs: Vital Signs 07/12/20 06:24 07/12/20 07:00 07/12/20 07:30 Temperature 38.0 C Pulse Rate 121 H 123 H 117 H Respiratory Rate 22 H 21 H 21 H Blood Pressure 121/70 104/62 101/62 O2 Sat by Pulse Oximetry 92 L 91 L 92 L 07/12/20 08:00 07/12/20 08:30 07/12/20 09:00 Temperature 37.6 C Pulse Rate 118 H 106 H 109 H Respiratory Rate 19 21 H 21 H Blood Pressure 116/69 91/51 112/66 O2 Sat by Pulse Oximetry 93 93 90 L - Progress/Reassessment Progress Note-Subjective: 07/12/20 09:44 patient meets sepsis criteria with HR and WBC with hypoxia lung is most likely source though at this time no definite infiltrate on CXR PSI 77, class III 07/12/20 10:32 patient feeling better after IV fluids and temperature treatment, HR improved O2 stable on on NC discussed admission with patient as he is hypoxic, patient agreed 07/12/20 10:[address] Mascorro 07/12/20 11:03 discussed with nick Garrison to admit for observaton for pneumonia and sepsis
[2020-07-12] MEDS ORDERED: ACETAMINOPHEN 325 MG TABLET PO ONE (07:45)
[2020-07-12 08:43] LABS: Urine Bilirubin Negative (NEGATIVE); Urine Blood Negative /ul (NEGATIVE); Urine Ketone 5 mg/dL (NEGATIVE); Urine Nitrite Negative (NEGATIVE); Urine Protein Negative (NEGATIVE); Urine Specific Gravity 1.015 SP.GR. (1.005-1.030); Urine Urobilinogen Normal (NORMAL); Urine pH 6.5 pH (5.0-7.0)
[2020-07-12 08:44] LABS: Urine Appearance Slightly Cloudy (CLEAR); Urine Bacteria 1+; Urine Color Yellow; Urine RBC None Seen /hpf (0-5); Urine WBC 0-5 /hpf (0-5)
[2020-07-12] MEDS ORDERED: AZITHROMYCIN 250 MG TABLET PO STA (11:22)
[2020-07-12] MEDS ORDERED: ACETAMINOPHEN 325 MG TABLET PO PRN (11:22)
[2020-07-12] MEDS ORDERED: CELECOXIB 100 MG CAPSULE PO PRN (11:46)
--- NOTE | 2020-07-12 11:46 | HP ---
Chief Complaint - Chief Complaint Date of Service: 07/12/20 Time of Service: 11:25 Chief Complaint: Weakness, disorientation day History of Present Illness: 69-year-old male with a past medical history of diabetes mellitus type 2, COPD, TUNDE, nicotine dependence currently smoking 2 packs of cigarettes daily, morbid obesity, lumbar disc herniation, osteoarthritis, presents medical angina presents from home with complaints of weakness and malaise disorientation. He states he woke up this morning and tried to walk to the bathroom around 8 AM. He felt weak and disoriented and was not able to make to the bathroom. He reports shortness of breath with no worsening cough or fevers noted at home. He was brought to the ER via EMS. In the ER he was found to be hypoxic with O2 saturation of 88% on room air, tachycardic in the 120s, low-grade temperature at 38 C. He required O2 supplementation at 2 L via nasal cannula. Blood work is positive for leukocytosis of 14.1, creatinine at 1.92, baseline is 1.01-1.28, BUN at 26, baseline is 13-17, GFR of 37, baseline is 60-78. In the ER, he received IV fluids, Tylenol azithromycin and ceftriaxone with improvement of his vital signs. Chest x-ray showed no consolidation, mild pulmonary vascular congestion, hypoventilatory changes. He is being admitted for hypoxia SIRS and pneumonia. Medical History (Last Reviewed 07/12/20 @ 07:33 by Bing Hayes MD) Shoulder pain, right (Chronic) Morbid obesity (Chronic) BMI 50.0-59.9, adult (Acute) Shoulder impingement (Acute) Onset Date: 10/2011 right Nicotine dependence (Chronic) Onset Date: 03/2014 Low back pain (Chronic) Lumbar disc herniation (Acute) Diabetes mellitus, type II (Chronic) Onset Date: 10/2012 Degenerative arthritis of hip (Acute) Onset Date: 10/2006 right, Dr. Lopez Cough Onset Date: 02/2013 Osteoarthritis Prinzmetal angina Per Dr. Hernández transforaminal block Onset Date: 05/31/10 Luis Manuel Sanchez 06/28/2010 L2-3 Noe Hernandez 05/31/2010 L2-3 TUNDE (obstructive sleep apnea) Sleep disturbance due to TUNDE Surgical History: Surgical History (Last Reviewed 07/12/20 @ 07:33 by Bing Hayes MD) H/O cardiac catheterization Onset Date: 2003 1999 [facility], 2003 [facility] History of arthroscopic surgery of shoulder Onset Date: 12/09/14 Dr. Montemayor,Right, w/debridement partial tear biceps tendon & labrum tear History of colonoscopy Onset Date: 01/2011 History of esophagogastroduodenoscopy (EGD) Onset Date: 01/2011 History of hip replacement, total Onset Date: 08/2006 Left 2017 [facility] Right 2008 [facility] History of knee replacement procedure of right knee Onset Date: 10/2006 S/P gastroplasty Onset Date: 02/1993 Dr. Idris Morales, [facility] vertical banded gastroplasty 11mm, 5mm Family History: Family History (Last Reviewed 07/12/20 @ 07:34 by Bing Hayes MD) Brother Brain aneurysm Father No problems noted. Mother Hypertension Diabetes Sister Alive and well Sister Obesity x2 Social History: (Last Reviewed 07/12/20 @ 07:34 by Bing Hayes MD) Social History: Marital status: household members: spouse current occupational status: disabled Highest level of school completed/degree received: GED or equivalent Service: Yes branch: [employer] Tobacco: Smoking Status: Current every day smoker tobacco type: cigarettes Smoking cigarettes per day: 40.0 Smoking packs per day: 2 Years smoked: 49 Smoking pack-years: 98.00 Alcohol: alcohol intake: current alcohol intake frequency: holiday/special occasion Substance Use: substance use type: does not use Dietary Habits: caffeine: Yes caffeine comment: daily Exercise: frequency: does not exercise Review Of Systems (GEN) - Review of Systems Generalized/Overall Review: Present: Fever Respiratory: Present: Cough, Shortness of Breath Cardiac: Present: Edema - Bilateral lower extremities, right worse than left. Absent: Chest Pain Abdominal: Absent: Abdominal Pain Misc: All systems neg except as marked Immunizations: IMMUNIZATION HX Immunizations Up to Date Yes History of Influenza Vaccine No Hx Pneumococcal Vaccination No Allergies/Adverse Reactions: Allergies Allergy/AdvReac Type Severity Reaction Status Date / Time morphine Allergy Severe Hives Verified 05/26/20 13:40 Iodinated Contrast Media Allergy Mild Hives Verified 05/26/20 13:40 [Iodinated Contrast- Oral and IV Dye] Home Medications: HOME MEDICATIONS Ezetimibe [Zetia] 10 mg PO HS 01/18/14 [Last Taken 09/19/16] metFORMIN HCL [Glucophage] 1,000 mg PO BID 09/20/16 [Last Taken 09/20/16] allopurinol 300 mg tablet 300 mg PO DAILY #30 tab 12/20/17 [Last Taken Unknown] glipizide 10 mg tablet 10 mg PO BID #60 tab 12/20/17 [Last Taken Unknown] atorvastatin 80 mg tablet 80 mg PO HS tab 10/22/19 [Last Taken Unknown] Insulin Degludec [Tresiba Flextouch U-100] 30 unit SQ HS 10/24/19 [Last Taken Unknown] Semaglutide [Ozempic] 0.25 mg SQ WE 10/24/19 [Last Taken Unknown] furosemide 40 mg tablet 40 mg PO DAILY #30 tab 05/26/20 [Last Taken Unknown] Celecoxib [Celebrex] 100 mg PO BID PRN 07/12/20 [Last Taken Unknown] Levothyroxine Sodium [Synthroid] 50 mcg PO DAILY 07/12/20 [Last Taken Unknown] Montelukast Sodium [Singulair] 10 mg PO HS 07/12/20 [Last Taken Unknown] metFORMIN HCL [Metformin HCl] mg PO 07/12/20 [Last Taken Unknown] Exam - Exam Vital Signs: Vital Signs - Last Taken Temp 37.6 C 07/12/20 08:30 Pulse 101 H 07/12/20 11:22 Resp 15 07/12/20 11:22 BP 102/57 07/12/20 11:22 Pulse Ox 95 07/12/20 11:22 Constitutional: Present: Alert, Cooperative, Well developed, Well nourished, No distress, Elderly ENT Exam: Present: hearing grossly normal, moist mucous membranes Eye Exam: bilateral eye: normal inspection, PERRL, EOMI Neck: Present: non-tender, supple. Absent: lymphadenopathy (R), lymphadenopathy (L) Back Exam: Present: normal inspection, no CVA tenderness Respiratory: Present: no respiratory distress, no accessory muscle use, rhonchi, wheezing - Bilaterally throughout all lung guevara Cardiovascular/Chest: Present: normal peripheral pulses, regular rate, rhythm, no murmur, edema - 1+ pitting edema right lower extremity, trace edema left lower extremity Peripheral Pulses: dorsalis-pedis (R): 2+, dorsalis-pedis (L): 2+ Abdomen: Present: Normal bowel sounds, soft, nontender, obese Extremity: Present: lower extremity edema - 1+ pitting edema in right lower extremity, trace edema in left lower extremity Skin Exam: Present: normal color, warm/dry Neurologic: Present: alert, normal mood/affect Appearance: Present: appropriate appearance, appropriate insight Eye contact: Present: cooperative Thoughts: Present: normal thought pattern Diagnostic Studies: Abnormal Lab Results 07/12/20 07/12/20 07/12/20 Range/Units 06:47 06:47 08:30 WBC 14.1 H (4.0-10.5) K/mm3 MCHC 31.9 L (32-36) g/dl Immature Gran % (Auto) 0.70 H (0.001-0.429) % Immature Gran # (Auto) 0.10 H (0.000-0.0310) K/mm3 Neutrophils % 87.5 H (42-75.0) % Lymphocytes % 5.1 L (20-51) % Neutrophils # 12.3 H (1.3-6.0) K/mm3 Lymphocytes # 0.72 L (1.5-3.5) k/mm3 Potassium 5.0 H D (3.4-4.6) mmol/L Anion Gap 14.6 H (6.8-13.8) mmol/L BUN 26 H D (6-23) mg/dL Creatinine 1.92 H D (0.4-1.4) mg/dL Est GFR (Non-Af Amer) 37 L D (60-130) mL/min Random Glucose 304 H (70-110) mg/dL Total Bilirubin 1.4 H (0.0-1.1) mg/dL Ur Epithelial Cells 10-25 H (0-5) /hpf Urine Bacteria 1+ H (NONE) Laboratory Results WBC 14.1 K/mm3 (4.0-10.5) H 07/12/20 06:47 RBC 5.12 M/mm3 (4.7-6.0) 07/12/20 06:47 Hgb 15.6 gm/dL (13.5-18.0) 07/12/20 06:47 Hct 48.9 % (42.0-52.0) 07/12/20 06:47 MCV 95.5 fl (78-100) 07/12/20 06:47 MCH 30.5 pg (27-31) 07/12/20 06:47 MCHC 31.9 g/dl (32-36) L 07/12/20 06:47 RDW 13.5 % (11.5-14.0) 07/12/20 06:47 Plt Count 204 K/mm3 (150-450) 07/12/20 06:47 MPV 9.5 fl (8-11.3) 07/12/20 06:47 Immature Gran % (Auto) 0.70 % (0.001-0.429) H 07/12/20 06:47 Immature Gran # (Auto) 0.10 K/mm3 (0.000-0.0310) H 07/12/20 06:47 Neutrophils % 87.5 % (42-75.0) H 07/12/20 06:47 Lymphocytes % 5.1 % (20-51) L 07/12/20 06:47 Monocytes % 6.4 % (0.0-9) 07/12/20 06:47 Eosinophils % 0.1 % (0.0-3.0) 07/12/20 06:47 Basophils % 0.2 % (0.0-1.0) 07/12/20 06:47 Nucleated RBC % 0.0 k/mm3 (0-1) 07/12/20 06:47 Neutrophils # 12.3 K/mm3 (1.3-6.0) H 07/12/20 06:47 Lymphocytes # 0.72 k/mm3 (1.5-3.5) L 07/12/20 06:47 Monocytes # 0.9 k/mm3 (0.0-1.0) 07/12/20 06:47 Eosinophils # 0.0 k/mm3 (0.0-0.7) 07/12/20 06:47 Absolute Basophils 0.0 k/mm3 (0.0-0.1) 07/12/20 06:47 Sodium 133 mmol/L (132-142) 07/12/20 06:47 Plasma Sodium 136 mmol/L (130-142) 07/12/20 06:47 Potassium 5.0 mmol/L (3.4-4.6) H D 07/12/20 06:47 Chloride 99 mmol/L (97-106) 07/12/20 06:47 Carbon Dioxide 24.4 mmol/L (24-32.6) 07/12/20 06:47 Anion Gap 14.6 mmol/L (6.8-13.8) H 07/12/20 06:47 BUN 26 mg/dL (6-23) H D 07/12/20 06:47 Creatinine 1.92 mg/dL (0.4-1.4) H D 07/12/20 06:47 Est GFR (Non-Af Amer) 37 mL/min (60-130) L D 07/12/20 06:47 BUN/Creatinine Ratio 13.5 (9.0-21.6) 07/12/20 06:47 Random Glucose 304 mg/dL (70-110) H 07/12/20 06:47 Lactic Acid, Venous 2.0 mmol/L (0.4-2.0) 07/12/20 06:40 Calcium 9.3 mg/dL (7.9-10.9) 07/12/20 06:47 Calcium Adj for Albumin 9.2 mg/dL (8.4-10.2) 07/12/20 06:47 Total Bilirubin 1.4 mg/dL (0.0-1.1) H 07/12/20 06:47 AST 27 U/L (0-48) 07/12/20 06:47 ALT 34 U/L (19-67) 07/12/20 06:47 Alkaline Phosphatase 120 U/L (50-170) 07/12/20 06:47 Troponin I 0.035 ng/mL (0.00-0.10) 07/12/20 06:40 B-Natriuretic Peptide 133 pg/mL (5-350) 07/12/20 06:47 Total Protein 7.8 gm/dL (6.2-8.2) 07/12/20 06:47 Albumin 3.7 gm/dl (3.4-5.0) 07/12/20 06:47 Procalcitonin 0.45 ng/mL (0.05-0.50) 07/12/20 06:40 Urine Color Yellow 07/12/20 08:30 Urine Appearance Slightly cloudy (CLEAR) 07/12/20 08:30 Urine pH 6.5 pH (5.0-7.0) 07/12/20 08:30 Ur Specific [place] 1.015 SP.GR. (1.005-1.030) 07/12/20 08:30 Urine Protein Negative mg/dL (NEGATIVE) 07/12/20 08:30 Urine Glucose (UA) Negative mg/dL (NEGATIVE) 07/12/20 08:30 Urine Ketones 5 mg/dL (NEGATIVE) 07/12/20 08:30 Urine Blood Negative /ul (NEGATIVE) 07/12/20 08:30 Urine Nitrate Negative (NEGATIVE) 07/12/20 08:30 Urine Bilirubin Negative mg/dl (NEGATIVE) 07/12/20 08:30 Urine Urobilinogen Normal EU/dl (NORMAL) 07/12/20 08:30 Ur Leukocyte Esterase Negative /ul (NEGATIVE) 07/12/20 08:30 Urine RBC None seen /hpf (0-5) 07/12/20 08:30 Urine WBC 0-5 /hpf (0-5) 07/12/20 08:30 Ur Epithelial Cells 10-25 /hpf (0-5) H 07/12/20 08:30 Urine Bacteria 1+ (NONE) H 07/12/20 08:30 Urine Culture Comments No culture indicated 07/12/20 08:30 Influenza Type A Ag Negative (NEGATIVE) 07/12/20 07:03 Influenza Type B Ag Negative (NEGATIVE) 07/12/20 07:03 SARS-CoV-2 (PCR) Not detected (NotDetected) 07/12/20 08:30 Assessment/Plan - Narrative Narrative: 69-year-old male with a past medical history of diabetes mellitus type 2, COPD, TUNDE, nicotine dependence currently smoking 2 packs of cigarettes daily, morbid obesity, lumbar disc herniation, osteoarthritis, presents medical angina presents from home with complaints of weakness and malaise disorientation. He states he woke up this morning and tried to walk to the bathroom around 8 AM. He felt weak and disoriented and was not able to make to the bathroom. He reports shortness of breath with no worsening cough or fevers noted at home. He was brought to the ER via EMS. In the ER he was found to be hypoxic with O2 saturation of 88% on room air, tachycardic in the 120s, low-grade temperature at 38 C. He required O2 supplementation at 2 L via nasal cannula. Blood work is positive for leukocytosis of 14.1, creatinine at 1.92, baseline is 1.01-1.28, BUN at 26, baseline is 13-17, GFR of 37, baseline is 60-78. In the ER, he received IV fluids, Tylenol azithromycin and ceftriaxone with improvement of his vital signs. Chest x-ray showed no consolidation, mild pulmonary vascular congestion, hypoventilatory changes. He is being admitted for hypoxia SIRS and pneumonia. Plan #1 continue with azithromycin and ceftriaxone #2 resume home medications for comorbidities #3 duo nebs every 4-6 hours #4 resume home medications for comorbidities #5 due to his worsening renal function I will hold his Metformin and Lasix for now. - Assessment/Plan (1) Pneumonia Problem: Acute Qualifiers: Pneumonia type: due to unspecified organism Laterality: unspecified laterality Lung location: unspecified part of lung Qualified Code(s): J18.9 - Pneumonia, unspecified organism (2) SIRS (systemic inflammatory response syndrome) Problem: Acute (3) Hypoxia Problem: Acute (4) Worsening renal function Problem: Acute (5) Dehydration Problem: Acute (6) Nicotine dependence Problem: Chronic (7) Diabetes mellitus, type II Problem: Chronic Qualifiers: (8) Hypothyroidism Problem: Chronic (9) Morbid obesity with BMI of 40.0-44.9, adult Problem: Chronic
[2020-07-12] MEDS: INSULIN LISPRO 100 UNITS/ML VIAL SC SCH ×3 (12:49→20:59)
[2020-07-12] MEDS: ALBUTEROL SULFATE/IPRATROPIUM 3 ML NEBU IH SCH ×3 (12:58→18:16)
[2020-07-12] MEDS: glipiZIDE 10 MG TABLET PO SCH ×2 (14:21→20:58)
[2020-07-12] MEDS: LEVOTHYROXINE SODIUM 50 MCG TABLET PO SCH (14:21)
[2020-07-12] MEDS: NYSTATIN 15 APPL BTL TP SCH (17:05)
[2020-07-12] MEDS ORDERED: EZETIMIBE 10 MG TABLET PO SCH (21:00)
[2020-07-12] MEDS ORDERED: ROSUVASTATIN CALCIUM 20 MG TABLET PO SCH (21:00)
[2020-07-13] MEDS: ALBUTEROL SULFATE/IPRATROPIUM 3 ML NEBU IH SCH ×3 (01:47→12:45)
[2020-07-13 06:14] LABS: Hematocrit 41.3 % (42.0-52.0); Hemoglobin 13.3 gm/dL (13.5-18.0); Mean Cell Volume 94.9 fl (78-100); Mean Corpuscular Hemoglobin 30.6 pg (27-31); Mean Corpuscular Hgb Conc 32.2 g/dl (32-36); Mean Platelet Volume 9.3 fl (8-11.3); Neutrophil # 6.2 K/mm3 (1.3-6.0); Neutrophil % 75.5 % (42-75.0); Platelet Count 159 K/mm3 (150-450); Red Blood Count 4.35 M/mm3 (4.7-6.0); Red Cell Distribution Width 14.1 % (11.5-14.0); White Blood Count 8.2 K/mm3 (4.0-10.5)
[2020-07-13 06:27] LABS: Albumin * 2.8 gm/dl (3.4-5.0); Anion Gap 12.3 mmol/L (6.8-13.8); BUN/Creatinine Ratio 17.4 (9.0-21.6); Bilirubin, Total 0.8 mg/dL (0.0-1.1); Ca. Corrected For Albumin 9.5 mg/dL (8.4-10.2); Calcium * 8.9 mg/dL (7.9-10.9); Carbon Dioxide 26.8 mmol/L (24-32.6); Potassium 4.1 mmol/L (3.4-4.6); Total Protein 6.6 gm/dL (6.2-8.2)
[2020-07-13] MEDS: LEVOTHYROXINE SODIUM 50 MCG TABLET PO SCH (07:00)
[2020-07-13] MEDS: INSULIN LISPRO 100 UNITS/ML VIAL SC SCH ×3 (07:27→17:10)
[2020-07-13] MEDS: glipiZIDE 10 MG TABLET PO SCH (08:21)
[2020-07-13] MEDS: NYSTATIN 15 APPL BTL TP SCH ×2 (08:23→17:18)
[2020-07-13] MEDS ORDERED: [UNRECOGNIZED DRUG - OTHER] TP ONE (08:44)
[2020-07-13] MEDS ORDERED: BACITRACIN ZINC 30 APPL TUBE TP PRN (08:45)
[2020-07-13] MEDS ORDERED: FLUTICASONE PROPIONATE 120 SPRAY INHALER NS SCH (09:45)
--- NOTE | 2020-07-13 10:00 | DS ---
(1) Pneumonia Problem: Acute Qualifiers: Pneumonia type: due to unspecified organism Laterality: unspecified laterality Lung location: unspecified part of lung Qualified Code(s): J18.9 - Pneumonia, unspecified organism (2) SIRS (systemic inflammatory response syndrome) Problem: Acute (3) Hypoxia Problem: Acute (4) Worsening renal function Problem: Acute (5) Dehydration Problem: Acute (6) Nicotine dependence Problem: Chronic (7) Diabetes mellitus, type II Problem: Chronic Qualifiers: (8) Hypothyroidism Problem: Chronic (9) Morbid obesity with BMI of 40.0-44.9, adult Problem: Chronic Hospital Course: 69-year-old male with a past medical history of diabetes mellitus type 2, COPD, TUNDE, nicotine dependence currently smoking 2 packs of cigarettes daily, morbid obesity, lumbar disc herniation, osteoarthritis, presents medical angina presents from home with complaints of weakness and malaise disorientation. He states he woke up this morning and tried to walk to the bathroom around 8 AM. He felt weak and disoriented and was not able to make to the bathroom. He reports shortness of breath with no worsening cough or fevers noted at home. He was brought to the ER via EMS. In the ER he was found to be hypoxic with O2 saturation of 88% on room air, tachycardic in the 120s, low-grade temperature at 38 C. He required O2 supplementation at 2 L via nasal cannula. Blood work is positive for leukocytosis of 14.1, creatinine at 1.92, baseline is 1.01-1.28, BUN at 26, baseline is 13-17, GFR of 37, baseline is 60-78. In the ER, he received IV fluids, Tylenol azithromycin and ceftriaxone with improvement of his vital signs. Chest x-ray showed no consolidation, mild pulmonary vascular congestion, hypoventilatory changes. He is being admitted for hypoxia, SIRS and pneumonia. Patient had one episode of fever that resolved with Tylenol. He was tapered off of oxygen and is saturating well on room air. Overall he feels better. He is stable to be discharged home today on azithromycin and Cefpodoxime. He will follow-up with his primary care physician in the next 1 to 2 weeks. I will hold his Lasix because he was dehydrated on presentation. He has been advised to discuss resuming Lasix with his primary care physician. Procedures Performed: none Results and Findings: [facility] Results 07/12/20 07:15 Blood Blood Culture - Preliminary NO GROWTH 24 HOURS 07/12/20 06:40 Blood Blood Culture - Preliminary NO GROWTH 24 HOURS Lab Pending Results 07/12/20 06:40: Procalcitonin 0.45 07/12/20 06:40: Troponin I 0.035 07/12/20 06:40: Lactic Acid, Venous 2.0 07/12/20 06:47: WBC 14.1 H, RBC 5.12, Hgb 15.6, Hct 48.9, MCV 95.5, MCH 30.5, MCHC 31.9 L, RDW 13.5, Plt Count 204, MPV 9.5, Immature Gran % (Auto) 0.70 H, Immature Gran # (Auto) 0.10 H, Neutrophils % 87.5 H, Lymphocytes % 5.1 L, Monocytes % 6.4, Eosinophils % 0.1, Basophils % 0.2, Nucleated RBC % 0.0, Neutrophils # 12.3 H, Lymphocytes # 0.72 L, Monocytes # 0.9, Eosinophils # 0.0, Absolute Basophils 0.0 07/12/20 06:47: Sodium 133, Plasma Sodium 136, Potassium 5.0 H D, Chloride 99, Carbon Dioxide 24.4, Anion Gap 14.6 H, BUN 26 H D, Creatinine 1.92 H D, Est GFR (Non-Af Amer) 37 L D, BUN/Creatinine Ratio 13.5, Random Glucose 304 H, Calcium 9.3, Calcium Adj for Albumin 9.2, Total Bilirubin 1.4 H, AST 27, ALT 34, Alkaline Phosphatase 120, B-Natriuretic Peptide 133, Total Protein 7.8, Albumin 3.7 07/12/20 07:03: Influenza Type A Ag Negative, Influenza Type B Ag Negative 07/12/20 08:30: SARS-CoV-2 (PCR) Not detected 07/12/20 08:30: Urine Color Yellow, Urine Appearance Slightly cloudy, Urine pH 6.5, Ur Specific [place] 1.015, Urine Protein Negative, Urine Glucose (UA) Negative, Urine Ketones 5, Urine Blood Negative, Urine Nitrate Negative, Urine Bilirubin Negative, Urine Urobilinogen Normal, Ur Leukocyte Esterase Negative, Urine RBC None seen, Urine WBC 0-5, Ur Epithelial Cells 10-25 H, Urine Bacteria 1+ H, Urine Culture Comments No culture indicated 07/13/20 06:10: WBC 8.2 D, RBC 4.35 L, Hgb 13.3 L, Hct 41.3 L, MCV 94.9, MCH 30.6, MCHC 32.2, RDW 14.1 H, Plt Count 159, MPV 9.3, Immature Gran % (Auto) 0.40, Immature Gran # (Auto) 0.03, Neutrophils % 75.5 H, Lymphocytes % 15.5 L, Monocytes % 8.2, Eosinophils % 0.2, Basophils % 0.2, Nucleated RBC % 0.0, Neutrophils # 6.2 H, Lymphocytes # 1.27 L, Monocytes # 0.7, Eosinophils # 0.0, Absolute Basophils 0.0 07/13/20 06:10: Sodium 136, Plasma Sodium 138, Potassium 4.1, Chloride 101, Carbon Dioxide 26.8, Anion Gap 12.3, BUN 21, Creatinine 1.21, Est GFR (Non-Af Amer) 64 D, BUN/Creatinine Ratio 17.4, Random Glucose 202 H D, Calcium 8.9, Calcium Adj for Albumin 9.5, Total Bilirubin 0.8, AST 190 H, ALT 53, Alkaline Phosphatase 90, Total Protein 6.6, Albumin 2.8 L Discharge Location: Home Disposition: Home self-care Condition: Stable Discharge Activity: Activity as tolerated Discharge Diet: Consistent carbs Prescriptions (Any new or edited meds): Cefpodoxime Proxetil 200 mg PO BID #6 tab [facility] [place] [place] Azithromycin [Zithromax] 250 mg PO DAILY #3 tab Transmission Status: [place] Complete Home Medications List: Complete Home Medication List: Ezetimibe [Zetia] 10 mg PO HS 01/18/14 metFORMIN HCL [Glucophage] 1,000 mg PO BID 09/20/16 allopurinol 300 mg tablet 300 mg PO DAILY #30 tab 12/20/17 glipizide 10 mg tablet 10 mg PO BID #60 tab 12/20/17 atorvastatin 80 mg tablet 80 mg PO HS tab 10/22/19 Insulin Degludec [Tresiba Flextouch U-100] 30 unit SQ HS 10/24/19 Semaglutide [Ozempic] 0.25 mg SQ WE 10/24/19 Celecoxib [Celebrex] 100 mg PO BID PRN 07/12/20 Levothyroxine Sodium [Synthroid] 50 mcg PO DAILY 07/12/20 Montelukast Sodium [Singulair] 10 mg PO HS 07/12/20 metFORMIN HCL [Metformin HCl] mg PO 07/12/20 Azithromycin [Zithromax] 250 mg PO DAILY #3 tab 07/13/20 Cefpodoxime Proxetil 200 mg PO BID #6 tab 07/13/20 Forms: Patient Portal Registration
[2020-07-13] MEDS ORDERED: AZITHROMYCIN 250 MG TABLET PO SCH (11:24)
[2020-07-13 17:03] VITALS: BP 135/82
== END 2020-07-13 17:38 | disposition home or self-care (01) ==
LOC: ER 06:20 → MS 06:20
PROVIDERS: ADMIT Internal Medicine; ATTEND Internal Medicine